=== PATIENT | male | born 1960 | race Caucasian/White ===

== ENCOUNTER 2025-02-05 19:52 | Inpatient (IN) | payer MEDICAID ==
[~2025-02-05] VITALS: Ht 175.3 cm; Wt 122.0 kg
[2025-02-05 19:59] VITALS: O2SAT 95
[2025-02-05] MEDS: SODIUM CHLORIDE 0.9% 1,000 ML IV ONE (20:47)
[2025-02-05] MEDS: ONDANSETRON HCL 4MG/2ML INJ IV ONE (20:47)
[2025-02-05] MEDS: KETOROLAC 15MG/ML VIAL IV ONE (20:47)
[2025-02-05 21:31] LABS: BASOPHILS % 1.0 % (0.0-2.0); EOSINOPHILS % 2.8 % (0.0-5.0); HEMATOCRIT. 31.2 % (42.0-52.0); HEMOGLOBIN. 10.4 g/dL (14.0-18.0); LYMPHOCYTES % 18.5 % (20.0-50.0); MEAN PLATELET VOLUME 6.6 fl (7.4-10.4); MONOCYTES % 11.5 % (2.0-8.0); NEUTROPHILS % 66.2 % (40.0-76.0); PLATELET 411 x1000/uL (130-400); RED BLOOD CELL COUNT 3.21 mill/uL (4.7-6.1); RED CELL DISTRIBUTION WIDTH 16.5 % (11.6-14.6)
[2025-02-05 21:48] LABS: TROPONIN I HIGH SENSITIVITY < 4 ng/L (3.0-53)
[2025-02-05 21:51] LABS: CREATININE 0.4 mg/dL (0.6-1.3); UREA NITROGEN BLOOD 8 mg/dL (9-23)
[2025-02-05 21:53] LABS: ASPARTATE AMINOTRANSFERASE 15 IU/L (<34); BILIRUBIN DIRECT 0.1 mg/dL (<=3.0); BILIRUBIN TOTAL 0.4 mg/dL (0.1-1.0); PROTEIN TOTAL 5.0 g/dL (6.0-8.3)
[2025-02-05] MEDS: HALOPERIDOL LACTATE 5MG/ML VIAL IM ONE (23:25)
[2025-02-05] MEDS: IOHEXOL-300 100 ML BOTTLE ONE (23:40)
[2025-02-05] MEDS: LORAZEPAM 2MG/ML UD SYRINGE IV NR (23:46)
[2025-02-06] VITALS (10 sets, daily range): BP systolic 101–127; BP diastolic 69–95; PULSE 100–124; RESP 16–26; TEMP 36.1–37; O2SAT 86–96
[2025-02-06 02:23] LABS: TROPONIN I HIGH SENSITIVITY < 4 ng/L (3.0-53)
[2025-02-06] MEDS ORDERED: DOCUSATE SODIUM 100MG CAPSULE PO PRN (02:45)
[2025-02-06] MEDS ORDERED: MAGNESIUM/ALUMINUM HYDROXIDE/SIMETHICONE 30ML UDC PO PRN (02:45)
[2025-02-06] MEDS ORDERED: GUAIFENESIN 200MG/10ML SUGAR FREE UDC PO PRN (02:45)
[2025-02-06] MEDS ORDERED: ACETAMINOPHEN 325MG TABLET PO PRN (02:45)
[2025-02-06] MEDS ORDERED: CLONIDINE 0.1MG TABLET PO PRN (02:45)
[2025-02-06] MEDS ORDERED: DEXTROSE 50% WATER 50ML SYRINGE IV PRN (02:45)
[2025-02-06] MEDS ORDERED: IPRATROPIUM/ALBUTEROL 0.5-3(2.5)MG/3ML NEB HHN PRN (02:45)
[2025-02-06] MEDS ORDERED: ONDANSETRON HCL 4MG/2ML INJ IV PRN (02:45)
[2025-02-06] MEDS: DEXAMETHASONE 4MG/ML 1ML VIAL IV SCH (06:22)
[2025-02-06] MEDS: INSULIN LISPRO 100 UNITS/ML SUBCUT SCH (08:00)
[2025-02-06] MEDS: BLOOD SUGAR DIAGNOSTIC STRIP TEST SCH (08:08)
[2025-02-06] MEDS: METOPROLOL TARTRATE 25MG TABLET PO SCH (09:35)
[2025-02-06] MEDS: PANTOPRAZOLE SODIUM 40 MG/VIAL IV SCH (09:35)
[2025-02-06] MEDS: ENOXAPARIN 40MG/0.4ML SYR SUBCUT SCH (09:38)
[2025-02-06] MEDS: ENOXAPARIN 120MG/0.8ML SYR SUBCUT NR (10:52)
[2025-02-06 12:45] LABS: INR 1.0
[2025-02-06 15:23] LABS: CLARITY URINE CLEAR (CLEAR); COLOR URINE YELLOW (YELLOW); GLUCOSE URINE NEGATIVE (NEGATIVE); KETONES URINE NEGATIVE (NEGATIVE); LEUKOCYTE ESTERASE URINE 1+ (NEGATIVE); NITRITE URINE NEGATIVE (NEGATIVE); OCCULT BLOOD URINE NEGATIVE (NEGATIVE); PH URINE 6.0 (4.5-8.0); PROTEIN URINE NEGATIVE (NEGATIVE); SPECIFIC GRAVITY URINE 1.019 (1.005-1.030); UROBILINOGEN URINE 1.0 E.U./dL (0.2-1.0)
[2025-02-06 15:31] LABS: *AMPHETAMINES SCREEN URINE NEGATIVE (NEGATIVE); *BENZODIAZEPINES SCREEN URINE NEGATIVE (NEGATIVE)
[2025-02-06 15:32] LABS: *BARBITURATES SCREEN URINE NEGATIVE (NEGATIVE); *COCAINE SCREEN URINE NEGATIVE (NEGATIVE); CANNABINOID URINE SCREEN NEGATIVE (NEGATIVE); ECSTASY MDMA SCREEN URINE NEGATIVE (NEGATIVE); METHADONE URINE SCREEN NEGATIVE (NEGATIVE); OPIATES URINE SCREEN NEGATIVE (NEGATIVE); PHENCYCLIDINE URINE SCREEN NEGATIVE (NEGATIVE)
[2025-02-06 15:50] LABS: BACTERIA URINE TRACE; RBC URINE 0-2 /hpf (0-2); SQUAMOUS EPITHELIAL CELL URINE FEW /lpf (RARE/1+)
[2025-02-06] MEDS: ENOXAPARIN 150MG/ML SYR SUBCUT SCH (20:35)
[2025-02-06] MEDS: ACETAMINOPHEN 325MG TABLET PO PRN (22:33)
[2025-02-07] VITALS (12 sets, daily range): BP systolic 113–139; BP diastolic 79–106; PULSE 106–133; RESP 15–22; TEMP 36.5–36.8; O2SAT 95–97
[2025-02-07 08:32] LABS: HEMATOCRIT. 32.1 % (42.0-52.0); HEMOGLOBIN. 10.5 g/dL (14.0-18.0); MEAN PLATELET VOLUME 7.1 fl (7.4-10.4); PLATELET 395 x1000/uL (130-400); RED BLOOD CELL COUNT 3.31 mill/uL (4.7-6.1); RED CELL DISTRIBUTION WIDTH 16.3 % (11.6-14.6)
[2025-02-07 08:40] LABS: CREATININE 0.4 mg/dL (0.6-1.3); TRIGLYCERIDE 127 mg/dL (0-150); UREA NITROGEN BLOOD 8 mg/dL (9-23)
[2025-02-07 08:41] LABS: LDL CHOLESTEROL 134 mg/dL (5-100)
[2025-02-07 08:43] LABS: T4 FREE 1.47 ng/dL (0.89-1.76)
[2025-02-07] MEDS: SERTRALINE HCL 25MG TABLET PO SCH (15:42)
[2025-02-07 17:27] LABS: LYMPHOCYTES % MANUAL 19.0 % (20.0-50.0); MONOCYTES % MANUAL 7.0 % (2.0-8.0); NEUTROPHILS % MANUAL 74.0 % (45.0-75.0); PLATELET ESTIMATE NORMAL
[2025-02-07] MEDS: TRAZODONE HCL 50MG TABLET PO SCH (21:18)
[2025-02-07] MEDS: METOPROLOL TARTRATE 50MG TABLET PO SCH (21:18)
[2025-02-08] VITALS (8 sets, daily range): BP systolic 95–125; BP diastolic 58–98; PULSE 107–116; RESP 14–21; TEMP 36.6–37.1; O2SAT 92–96
[2025-02-08] MEDS ORDERED: LORAZEPAM 2MG/ML UD SYRINGE IV PRN (03:21)
[2025-02-08 06:29] LABS: CREATININE 0.5 mg/dL (0.6-1.3); UREA NITROGEN BLOOD 16 mg/dL (9-23)
[2025-02-08 06:31] LABS: PHOSPHORUS 3.8 mg/dL (2.5-4.9)
[2025-02-08 06:52] LABS: BASOPHILS % 0.4 % (0.0-2.0); EOSINOPHILS % 0.0 % (0.0-5.0); HEMATOCRIT. 31.9 % (42.0-52.0); HEMOGLOBIN. 10.3 g/dL (14.0-18.0); LYMPHOCYTES % 11.2 % (20.0-50.0); MEAN PLATELET VOLUME 7.1 fl (7.4-10.4); MONOCYTES % 8.4 % (2.0-8.0); NEUTROPHILS % 80.0 % (40.0-76.0); PLATELET 435 x1000/uL (130-400); RED BLOOD CELL COUNT 3.30 mill/uL (4.7-6.1); RED CELL DISTRIBUTION WIDTH 16.4 % (11.6-14.6)
[2025-02-08] MEDS: DIGOXIN 500MCG/2ML AMP IV SCH (10:47)
[2025-02-08] MEDS ORDERED: GADOTERATE MEGLUMINE 5 MMOL/10 ML VIAL IV ONE (10:50)
[2025-02-08] MEDS: DIGOXIN 125MCG TABLET PO SCH (18:57)
[2025-02-08] MEDS: METOPROLOL TARTRATE 25MG TABLET PO SCH (21:55)
[2025-02-09] VITALS (9 sets, daily range): BP systolic 111–128; BP diastolic 71–95; PULSE 82–98; RESP 14–20; TEMP 36.6–36.9; O2SAT 93–98
[2025-02-09 06:58] LABS: HEMATOCRIT. 32.6 % (42.0-52.0); HEMOGLOBIN. 10.7 g/dL (14.0-18.0); MEAN PLATELET VOLUME 6.8 fl (7.4-10.4); PLATELET 405 x1000/uL (130-400); RED BLOOD CELL COUNT 3.35 mill/uL (4.7-6.1); RED CELL DISTRIBUTION WIDTH 16.1 % (11.6-14.6)
[2025-02-09 07:01] LABS: CREATININE 0.4 mg/dL (0.6-1.3); UREA NITROGEN BLOOD 10 mg/dL (9-23)
[2025-02-09 07:03] LABS: PHOSPHORUS 3.7 mg/dL (2.5-4.9)
[2025-02-09] MEDS ORDERED: APIX2.5T MT (12:31)
[2025-02-09] MEDS ORDERED: METO25TA6 PO (12:31)
[2025-02-09] MEDS ORDERED: DIGO-34 PO (12:31)
[2025-02-09] MEDS ORDERED: SERT25TA74 PO (12:31)
[2025-02-09 21:03] LABS: LYMPHOCYTES % MANUAL 11.0 % (20.0-50.0); MONOCYTES % MANUAL 17.0 % (2.0-8.0); NEUTROPHILS % MANUAL 72.0 % (45.0-75.0); PLATELET ESTIMATE INCREASED
[2025-02-10] MEDS ORDERED: SERTRALINE HCL 25MG TABLET PO SCH (09:00)
== END 2025-02-09 18:37 | disposition home or self-care (01) | DRG 241 ==
LOC: ER 19:52 → 5EST 02-06 01:24 → EDBEDREQSVC 02-06 01:28 → EDBEDREQTM 02-06 01:28 → EDBEDREQDT 02-06 01:28 → EDBEDREQ 02-06 01:28 → ENRESERV 02-06 01:56
PROVIDERS: ADMIT Internal Medicine; ATTEND Internal Medicine
DX: K29.70 Gastritis, unspecified, without bleeding (principal); G93.41 Metabolic encephalopathy; D64.9 Anemia, unspecified; E11.9 Type 2 diabetes mellitus without complications; E66.813 Obesity, class 3; I48.19 Other persistent atrial fibrillation; G93.9 Disorder of brain, unspecified; F32.A Depression, unspecified; I10 Essential (primary) hypertension; G93.6 Cerebral edema; K80.20 Calculus of gallbladder without cholecystitis without obstruction; Z68.39 Body mass index [BMI] 39.0-39.9, adult; Z85.72 Personal history of non-Hodgkin lymphomas; Z85.841 Personal history of malignant neoplasm of brain; Z92.21 Personal history of antineoplastic chemotherapy; Z92.3 Personal history of irradiation
CPT/HCPCS: 36415; 70553; 74177; 76700; 80048; 80061; 80076; 80305; 81003; 82962; 83036; 83735; 84100; 84439; 84443; 84484; 85025; 93005; 93306; 93970; 99285; A4606; A4615; A9577; J1100; J1160; J1630; J1650; J1815; J1885; J2060; J2405; J2470; J7030; Q9967